=== PATIENT | female | born 1965 | race Caucasian/White ===

== ENCOUNTER 2020-09-25 03:07 | Emergency (ER) | payer BC ==
[~2020-09-25] VITALS: Ht 154.9 cm; Wt 65.8 kg
--- NOTE | 2020-09-25 03:30 | NUR ---
Patient presents for headache and insomnia for 2 days now. No diplopia, slurred speech, ataxia, or weakness. A&Ox4. Able to make needs known. No other issues present at this time.
[2020-09-25] MEDS ORDERED: ALPR1TAB7 PO (03:37)
[2020-09-25] MEDS ORDERED: ACETAMINOPHEN ES 500 MG TABLET PO ONE (03:45)
[2020-09-25] MEDS ORDERED: ACETAMINOPHEN ES 500 MG TABLET ONE (03:47)
--- NOTE | 2020-09-25 03:49 | NUR ---
Patient discharged to home in stable condition. Written and verbal after care instructions given. Patient verbalizes understanding of instructions. Stressed follow up or return to ER for worsening s/s. VSS. Steady gait. All belongings with patient.
[2020-09-25 03:53] VITALS: BP 109/61
== END 2020-09-25 03:53 | disposition home or self-care (01) ==
LOC: ER 03:16
DX: F41.9 Anxiety disorder, unspecified (principal); G47.00 Insomnia, unspecified
CPT/HCPCS: A4663; A9150